=== PATIENT | female | born 1955 ===

== ENCOUNTER → 2017-03-05 | Outpatient (CLI) | payer MEDICARE ==
[2017-03-05 16:53] LABS: BASOPHILS ABSOLUTE AUTO 0.06 K/mm3 (0.00-0.23); BASOPHILS PERCENT AUTO 1 % (0-2); EOSINOPHILS ABSOLUTE AUTO 0.08 K/mm3 (0.00-0.68); EOSINOPHILS PERCENT AUTO 2 % (0-6); Hematocrit 43.2 % (33.0-51.0); Hemoglobin 14.8 g/dL (11.5-16.0); IMMATURE GRAN ABSOLUTE AUTO 0.01 K/mm3 (0.00-0.10); IMMATURE GRAN PERCENT AUTO 0 % (0-1); LYMPHOCYTES ABSOLUTE AUTO 1.54 K/mm3 (0.84-5.20); LYMPHOCYTES PERCENT AUTO 30 % (21-46); MONOCYTES ABSOLUTE AUTO 0.62 K/mm3 (0.16-1.47); MONOCYTES PERCENT AUTO 12 % (4-13); Mean Corpuscular HGB Conc 34.3 g/dL (31.5-36.5); Mean Corpuscular Volume 96 fL (80-100); Mean Platelet Volume 9.4 fL (9.1-12.4); NEUTROPHILS ABSOLUTE AUTO 2.75 K/mm3 (1.96-9.15); NEUTROPHILS PERCENT AUTO 54 % (41-73); Platelet Count 283 K/mm3 (150-400); RDW Coefficient Variation 12.3 % (11.7-14.2); RDW Standard Deviation 43.2 fL (35.1-46.3); Red Blood Cell Count 4.49 M/mm3 (3.80-5.20); White Blood Cell Count 5.06 K/mm3 (4.00-11.30)
[2017-03-05 17:06] LABS: Alanine Aminotransfer (ALT/SGP 39 U/L (12-78); Albumin, Blood 3.8 g/dL (3.4-5.0); Alk Phos 140 U/L (40-126); Anion Gap 12 mmol/L (6-16); Aspartate Aminotrans (AST/SGOT 40 U/L (12-37); Bilirubin, Total 0.5 mg/dL (0.1-1.0); Blood Urea Nitrogen 4 mg/dL (8-24); Bun/Creatinine Ratio 6.2 (12.0-20.0); CO2, Blood 24 mmol/L (21-32); Calcium, Blood 9.1 mg/dL (8.5-10.1); Chloride, Blood 99 mmol/L (98-108); Creatinine, Blood 0.65 mg/dL (0.40-1.00); Glomerular Filtration Rate >60 (60-); Glucose, Blood 103 mg/dL (70-99); Potassium, Blood 3.5 mmol/L (3.5-5.5); Sodium, Blood 135 mmol/L (136-145); Total Protein, Blood 7.8 g/dL (6.4-8.2)
== END ==
LOC: LAB SHORT 16:50
PROVIDERS: Physician Assistant
DX: R10.84 Generalized abdominal pain (principal)
CPT/HCPCS: 80053; 83690; 85025; 87086

== ENCOUNTER 2021-05-02 17:36 | Observation (INO) | payer MEDICARE, OTHER ==
[~2021-05-02] VITALS: Ht 157.5 cm; Wt 49.5 kg
[2021-05-02 19:40] LABS: BASOPHILS ABSOLUTE AUTO 0.06 K/mm3 (0.00-0.23); BASOPHILS PERCENT AUTO 1 % (0-2); EOSINOPHILS ABSOLUTE AUTO 0.01 K/mm3 (0.00-0.68); EOSINOPHILS PERCENT AUTO 0 % (0-6); Hematocrit 40.6 % (33.0-51.0); Hemoglobin 14.2 g/dL (11.5-16.0); IMMATURE GRAN ABSOLUTE AUTO 0.04 K/mm3 (0.00-0.10); IMMATURE GRAN PERCENT AUTO 0 % (0-1); LYMPHOCYTES ABSOLUTE AUTO 1.22 K/mm3 (0.84-5.20); LYMPHOCYTES PERCENT AUTO 11 % (21-46); MONOCYTES ABSOLUTE AUTO 0.92 K/mm3 (0.16-1.47); MONOCYTES PERCENT AUTO 8 % (4-13); Mean Corpuscular HGB 32.6 pg (26.0-34.0); Mean Corpuscular Volume 93 fL (80-100); Mean Platelet Volume 9.4 fL (9.1-12.4); NEUTROPHILS ABSOLUTE AUTO 8.88 K/mm3 (1.96-9.15); NEUTROPHILS PERCENT AUTO 80 % (41-73); Platelet Count 281 K/mm3 (150-400); RDW Coefficient Variation 11.9 % (11.7-14.2); Red Blood Cell Count 4.36 M/mm3 (3.80-5.20); White Blood Cell Count 11.13 K/mm3 (4.00-11.30)
[2021-05-02 19:47] LABS: Anion Gap 9 mmol/L (6-16); Blood Urea Nitrogen 6 mg/dL (8-24); Bun/Creatinine Ratio 13.4 (12.0-20.0); CO2, Blood 24 mmol/L (21-32); Calcium, Blood 8.1 mg/dL (8.5-10.1); Chloride, Blood 100 mmol/L (98-108); Creatinine, Blood 0.45 mg/dL (0.40-1.00); Glomerular Filtration Rate >60 (60-); Glucose, Blood 111 mg/dL (70-99); Potassium, Blood 3.3 mmol/L (3.5-5.5); Sodium, Blood 133 mmol/L (136-145)
--- NOTE | 2021-05-03 02:52 | NUR ---
SUPERVISOR TESTING SUMMARY PATIENT IS AN ADMISSION OF THE SHIFT. SHE IS ALERT AND ORIENTED. WAS MADE COMFORTABLE IN BED. STATED SHE WAS IN PAIN, AND SHE GOT HER PAIN MED NEEDED. ASSESSMENT DONE AND DOCUMENTED. NO PRESSURE WOUND NOTED. SHE HAS STITCHES ON HER RT FOREHEAD. CURRENTLY SHE IS NPO. CALL PLACED FOR ORTHOPAEDIC CONSULT. V/S CHECKED NAD RECORDED. WILL CONTINUE TO MONITOR HER.
[2021-05-03 10:47] LABS: Influenza A, PCR NEGATIVE (NEGATIVE); Influenza B, PCR NEGATIVE (NEGATIVE); Resp Syncytial Virus, PCR NEGATIVE (NEGATIVE); SARS-Cov-2 (COVID-19) PCR, MMC NEGATIVE (NEGATIVE)
--- NOTE | 2021-05-03 16:19 | NUR ---
TRANSFER TO OR AND SURGICAL UNIT: LATE ENTRY:13:30 PATIENT PAIN CONTROLLED WITH PAIN MEDICATIONS, ELEVATION OF RIGHT ARM, AND BEING FIT FOR APPROPRIATE NECK BRACE. PATIENT ALERT AND ORIENTED X4 THROUGHOUT MORNING. PATIENT DENIED NUMBNESS/TINGLING THROUGHOUT. SENSATION AND MOVEMENT PRESENT IN ALL EXTREMITIES. DR. SERNA ROUNDED ON PATIENT AND DISCUSSED UPCOMING TREATMENTS. HE RELAYED THE INSTRUCTIONS PER THE NEUROSURGEON IN [place] AND DISCUSSED THE IMPORTANCE OF FOLLOWING UP AN OUTPATIENT. BOTH THE PATIENT AND DAUGHTER EXPRESSED UNDERSTANDING. [facility] IN TO CORRECTLY FIT PATIENT FOR A NECK COLLAR. PATIENT REPORTED INCREASED COMFORT. PATIENT TRANSFERED TO OR FOR FIX OF RIGHT WRIST AND TO THEN TRANSFER TO SURGICAL 215. PATIENT'S BELONGINGS MOVED TO THE NEW ROOM BY GLASS CURVATURE GAUGER.
--- NOTE | 2021-05-03 19:37 | NUR ---
SHIFT SUMMARY PATIENT ADMIT TO UNIT FROM OR POST OP ORIF OF R WRIST. ALERT AND ORIENTED WITH SOME UMATILLA TRIBE AND OCCASIONAL FORGETFULNESS. BP ELEVATED ON POST OP VITALS BUT TRENDING DOWN WITH PAIN MED ADMINISTRATION. ROMERO WRAP TO WRIST WRIST AND ARM. R FINGERS SWOLLEN AND STIFF. ABLE TO SLIGHTLY WIGGLE FINGERS, CAP REFILL LESS THAN 3 SECS, REPORTS INTACT SENSATION. R ARM ELEVATED ON PILLOW. C-COLLAR TO NECK. OINTMENT APPLIED TO R FOREHEAD LACERATION AND ABRASIONS. SBA WITH GAIT BELT UP TO TOILET. VOIDING WELL. SALINE LOCKED. TOLERATING FLUIDS AND VEGETARIAN DIET. REPORT GIVEN TO MERCHANDISE DISTRIBUTOR RN.
--- NOTE | 2021-05-04 04:42 | NUR ---
SUMMARY PT C/O PAIN IN RIGHT ARM/ WRIST. PT TX PER EMAR W/ RELIEF. PT DRESSING C/D/I. PT STITCHES ON FOREHEAD ARE C/D/I. PT CONTINUES TO WEAR C-COLLAR. PT HAS BEEN EATING AND DRINKING WELL. PT HAS BEEN VOIDING WELL THROUGHOUT SHIFT. PT DENIES DIZZINESS WHEN STANDING. PT HAS BEEN ABLE TO SLEEP WELL DURING SHIFT. PT CURRENTLY SLEEPING IN NO DISTRESS. CALL LIGHT IN REACH.
[2021-05-04 04:58] LABS: Albumin, Blood 2.9 g/dL (3.4-5.0); Anion Gap 5 mmol/L (6-16); Blood Urea Nitrogen 4 mg/dL (8-24); CO2, Blood 26 mmol/L (21-32); Calcium, Blood 8.5 mg/dL (8.5-10.1); Chloride, Blood 105 mmol/L (98-108); Glomerular Filtration Rate >60 (60-); Glucose, Blood 117 mg/dL (70-99); Phosphorus, Blood 2.9 mg/dL (2.5-4.9); Potassium, Blood 3.8 mmol/L (3.5-5.5); Sodium, Blood 136 mmol/L (136-145)
[2021-05-04] MEDS ORDERED: DOCU100 PO (12:24)
[2021-05-04] MEDS ORDERED: Percocet 5-3251 EACH PO (12:25)
[2021-05-04] MEDS ORDERED: SENNA LAXATIVE8.6 MG PO (12:26)
[2021-05-04] MEDS ORDERED: MIRALAX17 GM PO (12:27)
--- NOTE | 2021-05-04 13:31 | NUR ---
new aquacell dressing placed to right wrist. sutures intact. scant amount old bloody drainage. patient and her daughter instructed in dressing changes and 2 replacement dressings given to patient
--- NOTE | 2021-05-04 16:48 | NUR ---
1640 DISCHARGED TO HOME WITH DAUGHTER. C COLLAR IN PLACE. RIGHT WRIST DRESSIING DRY AND INTACT WITH AQUACELL AND ROMERO WRAP IN PLACE. PT AND HER DAUGHTER ARE IN AGREEMENT WITH PLAN TO DISCHARGE HOME AND FOLLOW UP OUTPATIENT WITH NEUROSURGERY, PCP AND ORTHOPEDICS. PT DENIES NUMBNESS OR TINGLING OF EXTREMITIES. RIGHT ARM ICED AND ELEVATED, FINGERS SWOLLEN, WARM WITH LESS THAN 3 SECOND CAPILLARY REFILL. DELMI PO FOOD AND FLUIDS WITHOUT NAUSEA. VOIDING CLEAR YELLOW URINE. PT REPORTS PAIN ADEQUATELY CONTROLLED WITH PO MEDS
== END 2021-05-04 16:45 | disposition home or self-care (01) ==
LOC: ER 17:36 → MEDS 17:37 → SURS 05-03 13:53
PROVIDERS: Emergency Medicine; Internal Medicine; Orthopaedic Surgery; ADMIT Internal Medicine
PROC: 0PSH04Z Reposition Right Radius with Internal Fixation Device, Open Approach (ICD-10-PCS; principal; 2021-05-03 14:30)
DX: S52.551A Other extraarticular fracture of lower end of right radius, initial encounter for closed fracture (principal); S12.090A Other displaced fracture of first cervical vertebra, initial encounter for closed fracture; S01.81XA Laceration without foreign body of other part of head, initial encounter; S02.40CA Maxillary fracture, right side, initial encounter for closed fracture; M19.90 Unspecified osteoarthritis, unspecified site; Z85.841 Personal history of malignant neoplasm of brain; W11.XXXA Fall on and from ladder, initial encounter; Z20.822 Contact with and (suspected) exposure to COVID-19
CPT/HCPCS: 0241U; 25605; 36415; 70450; 70496; 70498; 71045; 72125; 72170; 73100; 73110; 73200; 80048; 80069; 85025; 96374; 96375; 96376; 97110; 97116; 97162; 97165; 99284-25; 99285-25; A9270; C1713; G0378; J0171; J0690; J1100; J2001; J2250; J2270; J2405; J2704; J3010; J7030; J7120; L0160; Q9967

== ENCOUNTER → 2023-10-04 | Outpatient (CLI) | payer MEDICARE ==
[~2023-10-04] MED LIST: DOCU100 PO; MIRALAX17 GM PO; Percocet 5-3251 EACH PO; SENNA LAXATIVE8.6 MG PO
[2023-10-04 17:59] LABS: Source, Urine Voided
[2023-10-04 18:54] LABS: Appearance, Urine Turbid (Clear); Bilirubin, Urine Neg (Neg); Blood, Urine 1+ (Neg); Color, Urine Yellow (P-Yellow); Glucose Qualitative, Urine Neg (Neg); Ketones, Urine 2+ (Neg); Leukocyte Esterase, Urine 1+ (Neg); Nitrite, Urine Neg (Neg); Protein, Urine 1+ (Neg); Specific Gravity, Urine 1.025 (1.003-1.022); Urobilinogen, Urine NORM (Normal)
[2023-10-04 19:01] LABS: Amorphous Heavy (0-Heavy); Bacteria Many /hpf; Squamous Epithelial Cells Few /hpf (Few)
== END ==
LOC: LAB 17:57 → LAB SHORT 17:57
PROVIDERS: Family Medicine
DX: R31.9 Hematuria, unspecified (principal)
CPT/HCPCS: 81001; 87077; 87086; 87186